=== PATIENT | male | born 2000 | race Caucasian/White ===

== ENCOUNTER 2023-01-24 11:05 | Emergency (ER) | payer OTHER ==
[~2023-01-24] VITALS: Ht 172.7 cm; Wt 68.2 kg
[2023-01-24 11:19] VITALS: BP 134/73; TEMP 98.5
[2023-01-24 12:14] LABS: STREP SCREEN NEGATIVE
[2023-01-24] MEDS ORDERED: PREDNISONE20 MG PO (13:21)
[2023-01-24 13:44] VITALS: PULSE 87
== END 2023-01-24 13:44 | disposition home or self-care (01) ==
LOC: COL.ER 11:05
PROVIDERS: Nurse Practitioner
DX: R21 Rash and other nonspecific skin eruption (principal); J35.1 Hypertrophy of tonsils